=== PATIENT | male | born 1950 | race Caucasian/White ===

== ENCOUNTER → 2023-12-28 06:21 | Day surgery (SDC) | payer MEDICARE, SELFPAY | LOC: GI 06:21 | PROVIDERS: ATTENDING PHYSICIAN Internal Medicine | DX: Z12.11 Encounter for screening for malignant neoplasm of colon (principal); K57.30 Diverticulosis of large intestine without perforation or abscess without bleeding; K64.9 Unspecified hemorrhoids; R10.13 Epigastric pain; R14.0 Abdominal distension (gaseous); D12.3 Benign neoplasm of transverse colon; D12.4 Benign neoplasm of descending colon; K29.50 Unspecified chronic gastritis without bleeding; K31.A0 Gastric intestinal metaplasia, unspecified; Z86.010 Personal history of colon polyps | CPT/HCPCS: 45385; 45380; 43239; 88305; 88342 ==

== ENCOUNTER 2024-02-02 23:19 | Emergency (ER) | payer MEDICARE, SELFPAY ==
[2024-02-02 23:26] VITALS: BP 147/75
[2024-02-03 00:31] VITALS: BP 112/64
[2024-02-03] MEDS: NSS 1000 IV (00:37)
[2024-02-03 00:46] LABS: % Basophils 0.2 % (0-2); % Eosinophils 0.2 % (0-6); % Immature Granulocytes 0.6 % (0-0.5); % Lymphocytes 8.7 % (20.5-51.1); % Monocytes 7.8 % (1.7-9.3); % Neutrophils 82.5 % (42.2-75.2); Absolute Immature Granulocytes 0.1 10^3/uL (0-0.05); Absolute Lymphocytes 1.1 10^3/uL (1.2-3.4); Absolute Neutrophils 10.1 10^3/uL (1.4-6.5); Hematocrit 38.2 % (39.0-52.0); Hemoglobin 13.4 g/dL (13.0-18.0); Mean Corp Hgb Conc. 35.1 g/dL (33.0-37.0); Mean Corpuscular Hgb 30.1 pg (27.0-31.0); Mean Corpuscular Volume 85.8 fL (80.0-94.0); Mean Platelet Volume 10.6 fL (7.4-10.4); Nucleated Red Blood Cells % 0 % (-); Platelet Count 193 10^3/uL (130-400); Red Blood Cell Count 4.45 10^6/uL (4.70-6.10); Red Cell Dist. Width 12.7 % (11.5-14.5); White Blood Cell Count 12.2 10^3/uL (4.8-10.8)
[2024-02-03 01:00] VITALS: BP 117/64
[2024-02-03 01:01] LABS: COVID-19 Antigen Negative (Negative)
[2024-02-03 01:03] LABS: Urine Albumin Negative (Neg - Trace); Urine Bilirubin 1+ (Negative); Urine Character Clear (Clear); Urine Color Yellow; Urine Glucose Negative (Negative); Urine Ketone Trace (Negative); Urine Leukocyte Negative (Negative); Urine Nitrite Negative (Negative); Urine Occult Blood Negative (Negative); Urine Specific Gravity 1.025 (<1.030); Urine Urobilinogen Negative (Neg - 1+)
[2024-02-03 01:05] LABS: ALT (SGPT) 18 U/L (0-50); AST (SGOT) 18 U/L (17-59); Albumin 3.7 g/dl (3.5-5.0); Alkaline Phosphatase 61 U/L (38-126); Blood Urea Nitrogen 17 mg/dl (9-20); Calcium 8.9 mg/dl (8.4-10.2); Carbon Dioxide 25 mmol/L (22-30); Chloride 100 mmol/L (98-107); Creatine Phosphokinase 45 U/L (55-170); Glucose 131 mg/dl (70-99); Potassium 3.6 mmol/L (3.5-5.1); Sodium 131 mmol/L (135-145); Total Bilirubin 0.8 mg/dl (0.2-1.3); Total Protein 6.3 g/dl (6.3-8.2); eGFR > 60.00
--- NOTE | 2024-02-03 01:43 | ED.GENMED ---
History of Present Illness
General
Chief Complaint: Fever
Time Seen by Provider: 02/02/24 23:32
Travel History
Have you had any contact with someone who has COVID-19?: No
Do you have any symptoms of coronavirus? Fever > 100 degrees, chills, cough, shortness of breath, sore throat, loss of taste or smell, muscle aches, or headache?: No
History of Present Illness
History of Present Illness:
73-year-old male with history of hypertension and hyperlipidemia presents to the emergency department for evaluation of general malaise and lightheadedness developing this morning. States that he vomited on 2 occasions. He also notes mild leg
cramps. Denies any objective fever at home. Denies any URI symptoms, sore throat, cough, chest pain, or shortness of breath. Has not taken any antipyretics today. No ill contacts at home.
Past History
Past History
ED Past Medical History: HTN, Hypercholesterolemia and Other (chronic back pain, osteoarthritis)
ED Past Surgical History: Tonsilectomy
Social History
Tobacco: Former smoker
Alcohol: Occasional
Drug: None
Personal:
Living: with family
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
Family History
Family History: Other (n/c); Negative Early CAD or CAD
Review of Systems
Review of Systems
Allergies reviewed?: Yes
All Other Systems: ROS reviewed and negative except as documented in HPI and ROS
Phy Exam
Physical Exam
Physical Exam:
GEN: Well appearing, NAD, WDWN
Eyes: PERRLA, EOMs intact, no scleral icterus
HENT: NCAT, oral mucosa moist, no JVD, no cervical adenopathy.
Lungs: CTAB, no wheezes, rales, rhonchi, normal chest wall excursion
Cardiac: RRR, no M/R/G, no peripheral edema. Radial pulses 2+ bilat
Abdomen: S, NT, ND, NABS, no masses or hepatosplenomegaly
Neuro: AO x 3
MSK: No gross deformity or ecchymosis. No edema. No digital clubbing
Skin: No rashes, petechiae. Normal color, no pallor or jaundice.
Psych: Calm, cooperative, proper hygiene
Course
Orders/Labs/Results
Orders:
Orders
02/02/24 23:22
Electrocardiogram (*1) Urgent
Reason for Study: Fatigue / Weakness
EKG- Treatment ONCE
02/02/24 23:54
Complete Blood Count/With Diff Urgent
Comprehensive Metabolic Panel Urgent
02/03/24 00:06
Urine Culture Reflexed from UA [Urinalysis Reflex To Culture] Urgent
Date Specimen was Collected: 02/03/24
Time Specimen was Collected: 00:04
02/03/24 00:13
0.9% Sodium Chloride 1000 ml [Nss] 1,000 ml IV BOLUS
02/03/24 00:14
CR Chest - 2 Views Urgent
Comment:
Reason For Exam: fever
02/03/24 00:20
COVID-19 Antigen Urgent
Source: Nasal Swab
Influenza A+B Rapid Molecular Urgent
ZAKIA Source: Nasal Swab
Specimen Description:
02/03/24 00:29
CPK [Creatine Phosphokinase] Urgent
Abnormal Lab Results
02/03/24 02/03/24
00:06 00:29
WBC 12.2 H 10^3/uL
(4.8-10.8)
RBC 4.45 L 10^6/uL
(4.70-6.10)
Hct 38.2 L %
(39.0-52.0)
MPV 10.6 H fL
(7.4-10.4)
Abs Immat Gran (auto) 0.1 H 10^3/uL
(0-0.05)
Absolute Neuts (auto) 10.1 H 10^3/uL
(1.4-6.5)
Absolute Lymphs (auto) 1.1 L 10^3/uL
(1.2-3.4)
Absolute Monos (auto) 1.0 H 10^3/uL
(0.1-0.6)
Immature Gran % 0.6 H %
(0-0.5)
Neutrophils % 82.5 H %
(42.2-75.2)
Lymphocytes % 8.7 L %
(20.5-51.1)
Sodium 131 L mmol/L
(135-145)
Glucose 131 H mg/dl
(70-99)
Creatine Kinase 45 L U/L
(55-170)
Urine Ketones Trace A
(Negative)
Urine Bilirubin 1+ A
(Negative)
02/03/24 00:29
02/03/24 00:29
Vital Signs
Initial and Last Documented VS:
Initial Vital Signs
Temp Pulse Resp BP Pulse Ox
99.8 F 94 16 147/75 95
02/02/24 23:26 02/02/24 23:26 02/02/24 23:26 02/02/24 23:26 02/02/24 23:26
Last Documented Vital Signs
Temp Pulse Resp BP Pulse Ox
98 F 72 17 120/62 97
02/03/24 02:15 02/03/24 02:15 02/03/24 02:15 02/03/24 02:15 02/03/24 02:15
MDM/Problems Addressed
MDM/Problems Addressed:
Patient's physical exam is grossly benign. Labs are unremarkable with the exception of mild leukocytosis that is nonspecific. Chest x-ray shows no evidence for infiltrate, likely self-limited viral syndrome, discussed supportive care and return
parameters
*Critical Care Note
Total Time (30-74mins, 75-104mins- exclusive of procedures): Not Applicable
ED Attending Note
-
Portions of this chart may have been created with voice recognition software.� Occasional wrong word or��sound alike� substitutions may have occurred due to the inherent limitations of voice recognition software.
Discharge Plan
Departure
Patient Disposition: Home (Routine Discharge)
Date of Disposition: 02/03/24
Time of Disposition: 01:43
Patient with high blood pressure during this ER visit?: No
Discharge Problem:
Acute viral syndrome
Instructions: Viral Syndrome (DC)
Prescriptions:
No Action
simvastatin 40 MG tablet
40 mg PO QPM
lisinopril [Prinivil] 40 MG tablet
40 mg PO DAILY
hydrochlorothiazide 25 MG tablet
25 mg PO DAILY
Referrals:
Gonzalo Sorenson MD [Family Provider] -
Activity Restrictions/Additional Instructions:
Return to the emergency department if your symptoms worsen
Interventions
Interventions:
*Risk Screen - Suicide Last Done: 02/02/24 23:26
*Neglect/Abuse Screening Last Done: 02/02/24 23:26
ED- Fall Risk Assessment Last Done: 02/03/24 02:15
*ED COVID-19 Vaccine History Last Done: 02/02/24 23:26
*Nursing Disposition Last Done: 02/03/24 02:15
ED- Neurological Assessment Last Done: 02/03/24 00:51
ED-Skin Assessment Last Done: 02/03/24 00:51
Discharge Date and Time
Discharge Date/Time: 02/03/24 02:17
Print Language: FRISIAN
[2024-02-03 02:06] VITALS: BP 120/62
[2024-02-03 02:15] VITALS: BP 120/62
== END 2024-02-03 02:17 | disposition home or self-care (01) ==
LOC: EMR 23:19
PROVIDERS: Physician Assistant; EMERGENCY PHYSICIAN Emergency Medicine; FAMILY PHYSICIAN Family Medicine
DX: B34.9 Viral infection, unspecified (principal); Z11.52 Encounter for screening for COVID-19; Z87.891 Personal history of nicotine dependence
CPT/HCPCS: 99285; 96360; 71046; 80053; 81003; 82550; 84484; 85025; 87502; 87811; 93005